=== PATIENT | female | born 1965 | race African-American/Black ===

== ENCOUNTER 2020-11-14 19:13 | Emergency (ER) | payer MEDICARE, BC ==
[~2020-11-14] VITALS: Ht 160 cm; Wt 78.0 kg
[~2020-11-14 19:13] MED LIST: AMLO5TAB4 PO; ASPI-1497 PO; CINA30 PO; HYDR-4134 PO; HYDR200T80 PO; MINO2.5T2 PO; NEPVIT PO; SEVE800T8 PO; [UNRECOGNIZED DRUG - CODE] PO
[2020-11-14 19:14] VITALS: BP 158/70
== END 2020-11-14 20:10 | disposition left against medical advice (07) ==
LOC: ER 19:13
DX: Z53.21 Procedure and treatment not carried out due to patient leaving prior to being seen by health care provider (principal)